=== PATIENT | male | born 1980 | race Hispanic/Latino ===

== ENCOUNTER 2023-02-18 16:47 | Inpatient (IN) | payer SELFPAY ==
[~2023-02-18 16:47] MED LIST: Iopamidol 300 61% 100 ML VIAL FS ONE
[2023-02-18] MEDS ORDERED: cefTRIAXone (ROCEPHIN) 2 GM VIAL ONE (17:23)
[2023-02-18] MEDS ORDERED: Ketorolac Tromethamine 30 MG/ML VIAL ONE (17:23)
[2023-02-18 18:01] LABS: #Neutrophils 12.4 10x3/uL (1.5-8.4); %Basophils 0.1 % (0.0-2.0); %Eosinophils 0.1 % (0.0-6.0); %Lymphocytes 10.8 % (18.0-47.0); %Monocytes 6.7 % (0.0-10.0); %Neutrophils 81.9 % (40.0-75.0); Hematocrit 32.3 % (38.8-50.0); Hemoglobin 11.6 g/dL (13.5-17.5); Mean Corpuscular HGB CONC 35.9 g/dL (32.0-36.0); Mean Corpuscular Hemoglobin 29.1 pg (27.0-33.0); Mean Corpuscular Volume 81.2 fl (81.2-95.1); Mean Platelet Volume 10.3 fl (7.4-10.4); Platelet Count 256 10x3/uL (150-450); RBC Distribution Width 11.3 % (11.5-14.5); Red Blood Cell (RBC) Count 3.98 10x6/uL (4.32-5.72); White Blood Cell (WBC) Count 15.1 10x3/uL (3.5-10.5)
[2023-02-18 18:13] LABS: ALT (SGPT) 11 U/L (8-55); AST (SGOT) 13 U/L (5-34); Albumin 3.4 g/dL (3.5-5.0); Alkaline Phosphatase 125 U/L (40-110); Anion Gap 13 mmol/L (10-20); BUN (Urea Nitrogen) 12 mg/dL (8.9-20.6); Bilirubin, Total 0.5 mg/dL (0.2-1.2); Calc. Creatinine Clearance 0 mL/min (70-130); Calcium 8.4 mg/dL (7.8-10.44); Carbon Dioxide 24 mmol/L (22-29); Chloride 95 mmol/L (98-107); Estimated GFR 109; Globulin 3.6 g/dL (2.4-3.5); Potassium 3.8 mmol/L (3.5-5.1); Sodium 128 mmol/L (136-145)
[2023-02-18 18:18] LABS: Glucose 432 mg/dL (70-105)
[2023-02-18] MEDS ORDERED: Vancomycin 1.5 GRAM/300 ML BAG 1.5 GM in Premix Bag 1 BAG IVPB SCH (18:45)
[2023-02-18] MEDS ORDERED: Senokot S 8.6-50 MG TAB PO PRN (19:04)
[2023-02-18] MEDS ORDERED: Calcium Carbonate 500 MG ChewTAB PO PRN (19:04)
[2023-02-18] MEDS ORDERED: Glucagon 1 MG/ML KIT IM PRN (19:04)
[2023-02-18] MEDS ORDERED: Dextrose 50% Abboject 50 ML SYRINGE SLOW IVP PRN (19:04)
[2023-02-18] MEDS ORDERED: Ondansetron PF 4 MG/2 ML Vial IVP PRN (19:04)
[2023-02-18] MEDS ORDERED: Dextrose 5% in Water 1,000 ML IV PRN (19:04)
[2023-02-18] MEDS ORDERED: Lactated Ringer's 1,000 ML IV SCH (19:15)
[2023-02-18 22:40] VITALS: BMI 21.7
[2023-02-18] MEDS: HumaLOG 300 UNITS/3 ML VIAL SC PRN (23:30)
[2023-02-19] MEDS: Acetaminophen 325 MG TAB PO PRN ×2 (00:48→16:53)
[2023-02-19] MEDS: Ketorolac Tromethamine 30 MG/ML VIAL IVP SCH ×2 (01:37→06:07)
[2023-02-19] MEDS: HumaLOG 300 UNITS/3 ML VIAL SC PRN ×3 (04:19→16:54)
[2023-02-19 05:38] LABS: #Monocytes 1.1 10x3/uL (0.0-1.1); #Neutrophils 13.2 10x3/uL (1.5-8.4); %Basophils 0.2 % (0.0-2.0); %Eosinophils 0.2 % (0.0-6.0); %Lymphocytes 13.1 % (18.0-47.0); %Monocytes 6.6 % (0.0-10.0); %Neutrophils 79.4 % (40.0-75.0); Hematocrit 36.7 % (38.8-50.0); Mean Corpuscular HGB CONC 35.4 g/dL (32.0-36.0); Mean Corpuscular Volume 81.9 fl (81.2-95.1); Mean Platelet Volume 10.1 fl (7.4-10.4); Platelet Count 271 10x3/uL (150-450); RBC Distribution Width 11.4 % (11.5-14.5); Red Blood Cell (RBC) Count 4.48 10x6/uL (4.32-5.72); White Blood Cell (WBC) Count 16.6 10x3/uL (3.5-10.5)
[2023-02-19 05:49] LABS: Anion Gap 14 mmol/L (10-20); BUN (Urea Nitrogen) 11 mg/dL (8.9-20.6); Calc. Creatinine Clearance 103 mL/min (70-130); Calcium 8.6 mg/dL (7.8-10.44); Carbon Dioxide 22 mmol/L (22-29); Chloride 102 mmol/L (98-107); Estimated GFR 112; Glucose 275 mg/dL (70-105); Potassium 3.5 mmol/L (3.5-5.1); Sodium 134 mmol/L (136-145)
[2023-02-19] MEDS: Cefepime 2 GM in Sodium Chloride 0.9% 100 ML IVPB SCH ×2 (06:16→16:53)
[2023-02-19] MEDS: Vancomycin HCl 1 GM in Sodium Chloride 0.9% 250 ML 250 ML IVPB SCH ×2 (10:16→21:46)
[2023-02-19 13:56] LABS: Hemoglobin A1c 13.3 % (4.0-6.0)
[2023-02-19] MEDS: Ibuprofen 400 MG TAB PO PRN (21:47)
[2023-02-20] MEDS: HYDROcodone/Acetaminophen 5/325 mg Tablet PO PRN ×2 (00:42→19:43)
[2023-02-20] MEDS: Cefepime 2 GM in Sodium Chloride 0.9% 100 ML IVPB SCH ×2 (05:30→17:29)
[2023-02-20] MEDS: HumaLOG 300 UNITS/3 ML VIAL SC PRN ×4 (05:42→21:33)
[2023-02-20] MEDS: Ibuprofen 400 MG TAB PO PRN ×2 (05:43→12:09)
[2023-02-20 08:41] LABS: #Eosinphils 0.1 10x3/uL (0.0-0.5); #Monocytes 0.8 10x3/uL (0.0-1.1); #Neutrophils 9.6 10x3/uL (1.5-8.4); %Basophils 0.2 % (0.0-2.0); %Eosinophils 0.7 % (0.0-6.0); %Lymphocytes 13.7 % (18.0-47.0); %Monocytes 6.4 % (0.0-10.0); %Neutrophils 78.5 % (40.0-75.0); Hemoglobin 11.5 g/dL (13.5-17.5); Mean Corpuscular HGB CONC 34.8 g/dL (32.0-36.0); Mean Corpuscular Hemoglobin 28.7 pg (27.0-33.0); Mean Corpuscular Volume 82.3 fl (81.2-95.1); Mean Platelet Volume 9.8 fl (7.4-10.4); Platelet Count 257 10x3/uL (150-450); RBC Distribution Width 11.5 % (11.5-14.5); Red Blood Cell (RBC) Count 4.01 10x6/uL (4.32-5.72); White Blood Cell (WBC) Count 12.3 10x3/uL (3.5-10.5)
[2023-02-20 08:49] LABS: Vancomycin, Trough 6.8 ug/mL
[2023-02-20] MEDS: Vancomycin HCl 1 GM in Sodium Chloride 0.9% 250 ML 250 ML IVPB SCH ×2 (08:53→21:13)
[2023-02-21] MEDS: Cefepime 2 GM in Sodium Chloride 0.9% 100 ML IVPB SCH (05:58)
[2023-02-21] MEDS: HumaLOG 300 UNITS/3 ML VIAL SC PRN ×3 (06:47→21:15)
[2023-02-21] MEDS: Acetaminophen 325 MG TAB PO PRN ×2 (07:08→16:45)
[2023-02-21] MEDS ORDERED: metFORMIN 500 MG TAB PO SCH (08:00)
[2023-02-21] MEDS: Vancomycin HCl 1 GM in Sodium Chloride 0.9% 250 ML 250 ML IVPB SCH (09:24)
[2023-02-21 19:43] VITALS: BP 138/89; TEMP 98.4
[2023-02-21] MEDS ORDERED: Amoxicillin/Potassium Clav 875 MG TAB PO SCH (21:00)
== END 2023-02-21 22:00 | disposition home or self-care (01) | DRG 872 ==
LOC: CSHERS 16:47 → CSHTELE 21:57
PROVIDERS: ADMIT Student in an Organized Health Care Education/Training Program; ATTEND Internal Medicine
DX: A41.9 Sepsis, unspecified organism (principal); L03.114 Cellulitis of left upper limb; E11.65 Type 2 diabetes mellitus with hyperglycemia; D64.9 Anemia, unspecified; M70.22 Olecranon bursitis, left elbow; Z98.890 Other specified postprocedural states; Z79.84 Long term (current) use of oral hypoglycemic drugs; Z79.4 Long term (current) use of insulin; Z79.899 Other long term (current) drug therapy
CPT/HCPCS: 36415; 36416; 80048; 80053; 80202; 83036; 83605; 85025; 86140; 87040; J0692; J0696; J1650; J1815; J1885; J3370; J3490; J7050; J7120; Q9967